=== PATIENT | female | born 1975 | race Caucasian/White ===

== ENCOUNTER 2017-09-06 10:59 | Emergency (ER) | payer BC ==
[2017-09-06 11:04] VITALS: BP 113/75
== END 2017-09-06 12:33 | disposition left against medical advice (07) ==
LOC: ED 10:59
DX: R10.9 Unspecified abdominal pain (principal); Z53.21 Procedure and treatment not carried out due to patient leaving prior to being seen by health care provider

== ENCOUNTER 2019-07-01 17:32 | Emergency (ER) | payer BC ==
[2019-07-01] MEDS ORDERED: NS 0.9% 1000 ML** 1,000 ML IV ONE (17:51)
[2019-07-01] MEDS ORDERED: Ondansetron INJ* 2 MG/ML VIAL IV ONE ×2 (17:51→18:39)
--- NOTE | 2019-07-01 17:56 | ED ---
Syncope/Near Syncope - HPI Summary HPI Summary: This patient is a 43 year old female brought in by EMS presenting to [facility] with a chief complaint of alcohol intoxication. The patient states she had too much "moonshine" at a wedding and had a near syncopal episode. EMS reported a glucose of 57 g/dl and gave her 10% dextrose [employer]. She has a Hx of bypass and anemia following the surgery. Patient without complaints at this time aside from nausea. No cardiac hx. Did not hit head. Family at bedside - History Of Current Complaint Chief Complaint: EDSubstanceAbuse Time Seen by Provider: 07/01/19 17:44 Hx Obtained From: Patient Onset/Duration: Lasting Hours Timing: Constant Context: Witnessed - Allergies/Home Medications Allergies/Adverse Reactions: Allergies Allergy/AdvReac Type Severity Reaction Status Date / Time aspirin Allergy See Comment Verified 03/07/18 11:16 hydromorphone Allergy Shortness Verified 03/07/18 11:18 of Breath latex Allergy Facial Verified 03/07/18 11:18 Redness/Flushing Latex, Natural Rubber Allergy Eyes Verified 03/07/18 11:18 Itchy/Swollen/Red/Watery morphine Allergy Shortness Verified 03/07/18 11:18 of Breath ALL TAPES Allergy MOREL, Uncoded 05/19/17 12:07 BRIGHT RED, LAST FOR DAYS SEASONAL Allergy ITCHY Uncoded 05/19/17 12:07 ENVIRONMENTAL/HAYFEVER EYES, CONGESTION Home Medications: Home Medications NK [No Home Medications Reported] 07/01/19 [History Confirmed 07/01/19] PMH/Surg Hx/FS Hx/Imm Hx Endocrine/Hematology History: Denies: Hx Diabetes Cardiovascular History: Denies: Hx Hypertension, Hx Pacemaker/ICD History: Denies: Hx Renal Disease Musculoskeletal History: Reports: Hx Arthritis - BILATERAL KNEES Sensory History: Denies: Hx Contacts or Glasses, Hx Hearing Aid Opthamlomology History: Denies: Hx Contacts or Glasses Psychiatric History: Denies: Hx Panic Disorder - Cancer History Hx Chemotherapy: No Hx Radiation Therapy: No - Surgical History Surgery Procedure, Year, and Place: tubal ligation. 2 c-sections. breast reduction. cyst to left ankle removed. GASTRIC SLEEVE - 04/2015 Hx Anesthesia Reactions: Yes - DURAMORPH - ITCHY, RED SPOTS ALL OVER Infectious Disease History: No Infectious Disease History: Denies: Traveled Outside the [place] in Last 30 Days - Family History Known Family History: Positive: Non-Contributory - Social History Alcohol Use: None Substance Use Type: Reports: None Smoking Status (MU): Never Smoked Tobacco Review of Systems Positive: Syncope Positive: Other - Alochol intoxication All Other Systems Reviewed And Are Negative: Yes Physical Exam - Summary Physical Exam Summary: Constitutional: Intoxicated. Well-developed, Well-nourished, Alert. (-) Distressed Skin: Warm, Dry HENT: Normocephalic; Atraumatic Eyes: Conjunctiva normal Neck: Musculoskeletal ROM normal neck. (-) JVD, (-) Stridor, (-) Nuchal rigidity Cardio: Rhythm regular, rate normal, Heart sounds normal; Intact distal pulses; Radial pulses are 2+ and symmetric. (-) Murmur Pulmonary/Chest wall: Effort normal. (-) Respiratory distress, (-) Wheezes, (-) Rales Abd: Soft, (-) tenderness, (-) Distension, (-) Guarding, (-) Rebound Musculoskeletal: (-) Edema Lymph: (-) Cervical adenopathy Neuro: Alert, Oriented x3 Psych: Mood and affect Normal Triage Information Reviewed: Yes Vital Signs On Initial Exam: Initial Vitals Temp Pulse Resp BP Pulse Ox 97.5 F 85 20 147/96 95 07/01/19 17:37 07/01/19 17:37 07/01/19 17:37 07/01/19 17:37 07/01/19 17:37 Vital Signs Reviewed: Yes Diagnostics - Vital Signs Vital Signs Temp Pulse Resp BP Pulse Ox 07/01/19 17:44 110 21 147/96 89 07/01/19 17:43 86 94 07/01/19 17:37 97.5 F 85 20 147/96 95 - Laboratory Result Diagrams: 07/01/19 18:11 07/01/19 18:11 Lab Statement: Any lab studies that have been ordered have been reviewed, and results considered in the medical decision making process. Re-Evaluation - Re-Evaluation First Eval Re-Evaluation Time: 19:00 Change: Unchanged Comment: Updated family on care, patient is still too intoxicated to leave. Second Eval Re-Evaluation Time: 20:10 Change: Improved - Patient ambulated, NAD. Family to take home. Given potassium Course/Dx Course Of Treatment: 43 y/o F with a history of gastric bypass and anemia presents with alcohol intoxication. Patient reportedly hypoglycemic to 57 on scene, given D10. Patient without complaints aside from being nauseous because I drank too much. - will check labs, give IVF, reassess - Diagnoses Provider Diagnoses: Alcohol intoxication Discharge - Sign-Out/Discharge Documenting (check all that apply): Patient Departure - Discharge Patient Received Moderate/Deep Sedation with Procedure: No - Discharge Plan Condition: Stable Disposition: HOME Patient Education Materials: Alcohol Intoxication (ED) Referrals: No Primary Care Phys,NOPCP [Primary Care Provider] - Additional Instructions: You were seen in the emergency department for alcohol intoxication. Please do not drink and drive - Billing Disposition and Condition Condition: STABLE Disposition: Home - Attestation Statements Document Initiated by Davidibe: Yes Documenting Scribe: Rainer Marquez Provider For Whom Davidibe is Documenting (Include Credential): Johnnie Banks MD Scribe Attestation: IRainer, scribed for Johnnie Banks MD on 07/01/19 at 2022. Scribe Documentation Reviewed: Yes Provider Attestation: The documentation as recorded by the Rainer garcia accurately reflects the service I personally performed and the decisions made by , Johnnie Banks MD Status of Scribe Document: Viewed
[2019-07-01 18:30] LABS: ABS Monocytes 0.3 10^3/ul (0-0.8); ABS Neutrophils 2.3 10^3/ul (1.5-7.7); Eosinophil % 0.5 %; Hematocrit 35 % (35-47); Hemoglobin 11.3 g/dL (12.0-16.0); Lymphocyte % 27.2 %; Mean Corpuscular HGB Conc 32 g/dL (31-36); Mean Corpuscular Hemoglobin 26 pg (27-31); Mean Corpuscular Volume 80 fL (80-97); Mean Platelet Volume 7.9 fL (7.4-10.4); Nucleated Red Blood Cells % 0.1; Platelet Count 305 10^3/uL (150-450); Red Blood Count 4.36 10^6 /uL (3.70-4.87); Red Cell Distribution Width 15 % (10-15); White Blood Count 3.7 10^3/uL (3.5-10.8)
[2019-07-01 18:46] LABS: Albumin 4.4 g/dL (3.2-5.2); Albumin/Globulin Ratio 1.6 (1-3); BUN/Creatinine Ratio 11.8 (8-20); Calcium 8.7 mg/dL (8.6-10.3); EGFR Non-African American 82.7 (>60); Globulin 2.7 g/dL (2-4); Potassium 3.2 mmol/L (3.5-5.0); Total Bilirubin 0.7 mg/dL (0.2-1.0); Total Protein 7.1 g/dL (6.4-8.9)
[2019-07-01 18:54] LABS: HCG Pregnancy 1.29 mIU/mL
[2019-07-01] MEDS ORDERED: Potassium Chlor TAB* 20 MEQ TAB.ER PO ONE (20:06)
[2019-07-01 20:21] VITALS: BP 104/60
== END 2019-07-01 20:19 | disposition home or self-care (01) ==
LOC: ED 17:32
DX: F10.929 Alcohol use, unspecified with intoxication, unspecified (principal); Z88.5 Allergy status to narcotic agent; Z88.8 Allergy status to other drugs, medicaments and biological substances; Z91.040 Latex allergy status; Z98.84 Bariatric surgery status
CPT/HCPCS: 36415; 80053; 84702; 85025; 96361; 96374; 96376; 99283; A9270-GY; J2405

== ENCOUNTER 2019-11-21 06:56 | Emergency (ER) | payer BC ==
[2019-11-21 07:32] LABS: ABS Eosinophils 0.1 10^3/ul (0-0.6); ABS Monocytes 0.5 10^3/ul (0-0.8); ABS Neutrophils 2.4 10^3/ul (1.5-7.7); Hematocrit 43 % (35-47); Hemoglobin 14.5 g/dL (12.0-16.0); Lymphocyte % 25.1 %; Mean Corpuscular HGB Conc 34 g/dL (31-36); Mean Corpuscular Hemoglobin 31 pg (27-31); Mean Corpuscular Volume 90 fL (80-97); Mean Platelet Volume 7.9 fL (7.4-10.4); Nucleated Red Blood Cells % 0.3; Platelet Count 250 10^3/uL (150-450); Red Blood Count 4.75 10^6 /uL (3.70-4.87); Red Cell Distribution Width 14 % (10-15); White Blood Count 3.9 10^3/uL (3.5-10.8)
[2019-11-21 07:42] LABS: Albumin 4.4 g/dL (3.2-5.2); Albumin/Globulin Ratio 1.6 (1-3); BUN/Creatinine Ratio 17.3 (8-20); Calcium 9.3 mg/dL (8.6-10.3); EGFR African American 101.1 (>60); EGFR Non-African American 83.6 (>60); Globulin 2.8 g/dL (2-4); Magnesium 1.9 mg/dL (1.9-2.7); Potassium 3.3 mmol/L (3.5-5.0); Total Bilirubin 0.5 mg/dL (0.2-1.0); Total Protein 7.2 g/dL (6.4-8.9)
[2019-11-21] MEDS ORDERED: Ondansetron INJ* 2 MG/ML VIAL IV ONE (07:45)
[2019-11-21] MEDS ORDERED: NS 0.9% 1000 ML** 1,000 ML IV ONE ×2 (07:51→08:37)
--- NOTE | 2019-11-21 07:52 | ED ---
GI/ HPI - HPI Summary HPI Summary: This patient is a 44 year old F presenting to [facility] with a chief complaint of N/ V/D since 3 days ago, 11/18/19, at 0200. Symptoms improving today. Pt reports bad stomach cramps, N/V/D, tactile fever, and back of legs cramping especially of left leg. Pt reports she took shower when near syncope occurred and she felt lightheaded. Patient reports hx gastric sleeve 5 yrs ago done by Dr. Mcintyre with no complications then. Pt reports she called into work yesterday and attempted to go today but felt sick. Pt reports no prior problems after her gastric sleeve. Pt denies V/D or eating today and is reporting continued nausea. - History of Current Complaint Chief Complaint: EDGeneral Time Seen by Provider: 11/21/19 07:08 Stated Complaint: WEAKNESS PER PT Hx Obtained From: Patient Hx Last Menstrual Period: ~1 week ago Onset/Duration: Started Days Ago, Still Present Timing: Constant Pain Intensity: 0 Associated Signs and Symptoms: Positive: Syncope - near-syncope, Nausea, Vomiting, Diarrhea, Fever, Other: - stomach cramp, BLE cramp Aggravating Factor(s): Nothing Alleviating Factor(s): Nothing - Allergy/Home Medications Allergies/Adverse Reactions: Allergies Allergy/AdvReac Type Severity Reaction Status Date / Time aspirin Allergy See Comment Verified 11/21/19 07:02 hydromorphone Allergy Shortness Verified 11/21/19 07:02 of Breath latex Allergy Facial Verified 11/21/19 07:02 Redness/Flushing Latex, Natural Rubber Allergy Eyes Verified 11/21/19 07:02 Itchy/Swollen/Red/Watery morphine Allergy Shortness Verified 11/21/19 07:02 of Breath ALL TAPES Allergy MOREL, Uncoded 11/21/19 07:02 BRIGHT RED, LAST FOR DAYS SEASONAL Allergy ITCHY Uncoded 11/21/19 07:02 ENVIRONMENTAL/HAYFEVER EYES, CONGESTION PMH/Surg Hx/FS Hx/Imm Hx Endocrine/Hematology History: Denies: Hx Diabetes Cardiovascular History: Denies: Hx Hypertension, Hx Pacemaker/ICD History: Denies: Hx Renal Disease Musculoskeletal History: Reports: Hx Arthritis - BILATERAL KNEES Sensory History: Denies: Hx Contacts or Glasses, Hx Hearing Aid Opthamlomology History: Denies: Hx Contacts or Glasses Psychiatric History: Denies: Hx Panic Disorder - Cancer History Hx Chemotherapy: No Hx Radiation Therapy: No - Surgical History Surgery Procedure, Year, and Place: tubal ligation. 2 c-sections. breast reduction. cyst to left ankle removed. GASTRIC SLEEVE - 04/2015 Hx Anesthesia Reactions: Yes - DURAMORPH - ITCHY, RED SPOTS ALL OVER Infectious Disease History: No Infectious Disease History: Denies: Traveled Outside the [place] in Last 30 Days - Family History Known Family History: Positive: Other - [place] - Social History Alcohol Use: None Hx Substance Use: No Substance Use Type: Reports: None Hx Tobacco Use: No Smoking Status (MU): Never Smoked Tobacco Review of Systems Positive: Fever Positive: Vomiting, Diarrhea, Nausea, Other - stomach cramps Positive: Other - BLE cramping Positive: Syncope - near syncope All Other Systems Reviewed And Are Negative: Yes Physical Exam - Summary Physical Exam Summary: Constitutional: Well-developed, Well-nourished, Alert. (-) Distressed Skin: Warm, Dry HENT: Normocephalic; Atraumatic, dry MM Eyes: Conjunctiva normal Neck: Musculoskeletal ROM normal neck. (-) JVD, (-) Stridor, (-) Nuchal rigidity Cardio: Rhythm regular, rate normal, Heart sounds normal; Intact distal pulses; Radial pulses are 2+ and symmetric. (-) Murmur Pulmonary/Chest wall: Effort normal. (-) Respiratory distress, (-) Wheezes, (-) Rales Abd: Soft, (-) tenderness, (-) Distension, (-) Guarding, (-) Rebound Musculoskeletal: (-) Edema Lymph: (-) Cervical adenopathy Neuro: Alert, Oriented x3 Psych: Mood and affect Normal Triage Information Reviewed: Yes Vital Signs On Initial Exam: Initial Vitals Temp Pulse Resp BP Pulse Ox 96.4 F 77 16 116/80 99 11/21/19 06:58 11/21/19 06:58 11/21/19 06:58 11/21/19 06:58 11/21/19 06:58 Vital Signs Reviewed: Yes Procedures - Sedation Patient Received Moderate/Deep Sedation with Procedure: No Diagnostics - Vital Signs Vital Signs Temp Pulse Resp BP Pulse Ox 11/21/19 07:29 70 97 11/21/19 06:58 96.4 F 77 16 116/80 99 - Laboratory Lab Results: Lab Results 11/21/19 11/21/19 Range/Units 07:18 07:18 WBC 3.9 (3.5-10.8) 10^3/uL RBC 4.75 (3.70-4.87) 10^6 /uL Hgb 14.5 (12.0-16.0) g/dL Hct 43 (35-47) % MCV 90 (80-97) fL MCH 31 (27-31) pg MCHC 34 (31-36) g/dL RDW 14 (10-15) % Plt Count 250 (150-450) 10^3/uL MPV 7.9 (7.4-10.4) fL Neut % (Auto) 60.5 % Lymph % (Auto) 25.1 % Barren % (Auto) 11.8 % Eos % (Auto) 2.0 % Baso % (Auto) 0.6 % Absolute Neuts (auto) 2.4 (1.5-7.7) 10^3/ul Absolute Lymphs (auto) 1.0 (1.0-4.8) 10^3/ul Absolute Monos (auto) 0.5 (0-0.8) 10^3/ul Absolute Eos (auto) 0.1 (0-0.6) 10^3/ul Absolute Basos (auto) 0.0 (0-0.2) 10^3/ul Absolute Nucleated RBC 0.0 10^3/ul Nucleated RBC % 0.3 Sodium 136 (135-145) mmol/L Potassium 3.3 L (3.5-5.0) mmol/L Chloride 102 (101-111) mmol/L Carbon Dioxide 26 (22-32) mmol/L Anion Gap 8 (2-11) mmol/L BUN 13 (6-24) mg/dL Creatinine 0.75 (0.51-0.95) mg/dL Est GFR ( Amer) 101.1 (>60) Est GFR (Non-Af Amer) 83.6 (>60) BUN/Creatinine Ratio 17.3 (8-20) Glucose 80 (70-100) mg/dL Calcium 9.3 (8.6-10.3) mg/dL Magnesium 1.9 (1.9-2.7) mg/dL Total Bilirubin 0.50 (0.2-1.0) mg/dL AST 21 (13-39) U/L ALT 17 (7-52) U/L Alkaline Phosphatase 49 (34-104) U/L Troponin I Pending Total Protein 7.2 (6.4-8.9) g/dL Albumin 4.4 (3.2-5.2) g/dL Globulin 2.8 (2-4) g/dL Albumin/Globulin Ratio 1.6 (1-3) Result Diagrams: 11/21/19 07:18 11/21/19 07:18 Lab Statement: Any lab studies that have been ordered have been reviewed, and results considered in the medical decision making process. - EKG 721 Cardiac Rate: NL - 69 BPM Summary of EKG Findings: EKG taken at 721 reveals sinus rhythm at 69 BPM with T -wave inversion in v1. When compared to 2014 no significant change. Re-Evaluation - Re-Evaluation First Eval Re-Evaluation Time: 08:36 Comment: Pt is feeling much better after IVF. GIGU Course/Dx - Course Course Of Treatment: 44 y/o F w hx gastric sleeve 5 years ago p/w nausea/ vomiting. - suspect 2/2 viral gastroenteritis. - VSS NAD, PE well appearing, abd soft. do not suspect appendicitis as patient does not have any right lower quadrant tenderness, fevers. No right upper quadrant tenderness to suggest biliary pathology, LFTs within normal limits. No urinary symptoms. Regarding fatigue/lightheadedness, Hb higher than normal suspect 2/2 hemoconcentration, EKG sinus without evidence of ischemia. Suspect secondary to dehydration. - labs notable for K 3.3, repleted. Given 2 L IVF. Feels much improved. Does not want to eat/drink here but has not vomited in >1 day. 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 0859: [place]: As long as pt feels fine she can be d/c and follow up in office as needed. Discharge ED - Sign-Out/Discharge Documenting (check all that apply): Patient Departure - discharge - Discharge Plan Condition: Stable Disposition: HOME Prescriptions: Ondansetron ODT TAB* [Zofran 4 MG Odt TAB*] 4 mg PO Q8H PRN 4 Days #12 tab.odt PRN Reason: Nausea/Vomiting Patient Education Materials: Acute Nausea and Vomiting (ED) Referrals: Mary Tello DO [Primary Care Provider] - 3 Days Additional Instructions: You were seen in the emergency department for nausea vomiting and dehydration. Your lab work showed mildly low potassium which we repleted in the ER. If any studies were not completed at the time of discharge you will be called with the relevant results. Please follow up with your primary care doctor in next 2-3 days and return to emergency department for worsening nausea, diarrhea, vomiting, abdominal pain, inability to eat or drink, or concerning symptoms. It was a pleasure taking care of you today. - Billing Disposition and Condition Condition: STABLE Disposition: Home - Attestation Statements Document Initiated by Miri: Yes Documenting Scribe: July Camejo Provider For Whom Miri is Documenting (Include Credential): Dr. Johnnie Jaramillo MD Scribe Attestation: July Soriano, scribed for Dr. Johnnie Jaramillo MD on 11/21/19 at 1005. Scribe Documentation Reviewed: Yes Provider Attestation: The documentation as recorded by the July garcia accurately reflects the service I personally performed and the decisions made by me, Dr. Johnnie Jaramillo MD Status of Scribe Document: Viewed
[2019-11-21] MEDS ORDERED: Potassium Chlor TAB* 20 MEQ TAB.ER PO ONE (08:06)
[2019-11-21 10:04] VITALS: BP 113/68
== END 2019-11-21 09:40 | disposition home or self-care (01) ==
LOC: ED 06:56
DX: R11.10 Vomiting, unspecified (principal); E86.0 Dehydration; Z98.84 Bariatric surgery status; Z98.51 Tubal ligation status; Z88.5 Allergy status to narcotic agent; Z88.8 Allergy status to other drugs, medicaments and biological substances; Z91.040 Latex allergy status
CPT/HCPCS: 36415; 80053; 83735; 84484; 85025; 93005; 96361; 96374; 99284; A9270-GY; J2405

== ENCOUNTER 2020-02-07 06:45 | Day surgery (SDC) | payer BC ==
[~2020-02-07 06:45] MED LIST: Buffered Lidocaine 1% SYRIN* 1 ML/SYRINGE INTRADERM ONE; Lactated Ringers 1000 ML Bag* 1,000 ML IV SCH
[2020-02-07] MEDS ORDERED: Buffered Lidocaine 1% SYRIN* 1 ML/SYRINGE INTRADERM ONE (06:57)
[2020-02-07] MEDS ORDERED: Propofol* 10 MG/ML 20 ML BTL ONE (08:08)
[2020-02-07] MEDS ORDERED: Lidocaine 2% PF * 5 ML VIAL ONE (08:09)
[2020-02-07] MEDS ORDERED: Midazolam* 1 MG/ML 2 ML VIAL (2 MG) ONE ×3 (08:10→09:04)
[2020-02-07] MEDS ORDERED: Ketorolac INJ* 30 MG/ML 1 ML VIAL ONE ×2 (08:14→09:36)
[2020-02-07] MEDS ORDERED: Rocuronium* 10 MG/ML VIAL ONE (08:39)
[2020-02-07] MEDS ORDERED: Succinylcholine* 20 MG/ML 10 ML VIAL ONE ×2 (08:40)
[2020-02-07] MEDS ORDERED: fentaNYL* 50 MCG/ML 2 ML VIAL (100 MCG VIAL) ONE (08:40)
[2020-02-07] MEDS ORDERED: Dexamethasone IV* 4 MG/ML 1 ML (4 MG) ONE (09:20)
[2020-02-07] MEDS ORDERED: Acetaminophen IV 1GM/100ML * 100 ML ONE (09:34)
[2020-02-07] MEDS ORDERED: DiMENhydriNATE IV* 50 MG/ML VIAL IV PUSH PRN (09:36)
[2020-02-07] MEDS ORDERED: fentaNYL* 50 MCG/ML 2 ML VIAL (100 MCG VIAL) IV PRN (09:36)
[2020-02-07] MEDS ORDERED: Naloxone* 0.4 MG/ML 1 ML VIAL IV PRN (09:36)
[2020-02-07] MEDS ORDERED: Ondansetron INJ* 2 MG/ML VIAL ONE (09:36)
[2020-02-07] MEDS ORDERED: Metoclopramide IV* 5 MG/ML 2 ML VIAL ONE (09:36)
[2020-02-07] MEDS ORDERED: Sugammadex * 200 MG/2 ML VIAL IV PUSH ONE (09:54)
[2020-02-07] MEDS ORDERED: Ketorolac TAB * 10 MG TAB PO PRN (10:21)
[2020-02-07] MEDS ORDERED: HYDROcodone/ACETAMIN 5-325 MG* 1 TAB PO PRN (10:21)
[2020-02-07 11:52] VITALS: BP 123/87
--- NOTE | 2020-02-07 23:14 | OP ---
DATE OF OPERATION: 02/07/20 - [facility] DATE OF : 73 SURGEON: Dr. Hale. ANESTHESIOLOGIST: Dr. Hines. ANESTHESIA: General endotracheal anesthesia. PRE-OP DIAGNOSES: Menorrhagia, polyp on ultrasound. POST-OP DIAGNOSES: Menorrhagia, polyp on ultrasound. OPERATIVE PROCEDURE: Dilation, hysteroscopy, MyoSure polypectomy, curettage, and NovaSure ablation. ESTIMATED BLOOD LOSS: Less than 20 cc. URINE OUTPUT: 50 cc clear urine on straight cath. NOVASURE SETTINGS: Length of cavity is 5.5, width is 4.5. The power was 136. The time was 1 minute 12 seconds. The deficit was 370 cc on the MyoSure. FINDINGS: Midline uterus, 8-week size. No adnexal masses palpated. Midline cervix. The uterus sounded to 10. The cervical length is 4.5 cm. There was fluffy endometrium on the posterior surface of the uterine wall. Both tubal ostia were visualized. There was a small polyp originating from the posterior wall. COMPLICATIONS: None. COUNTS: Sponge, lap, and needle counts were correct x2. CONDITION: The patient was brought to the recovery room awake and in stable condition. DESCRIPTION OF PROCEDURE: The patient was brought to the operating room. When general anesthesia was found to be adequate, the patient was prepped and draped in the usual sterile fashion in the dorsal lithotomy position. Time-out was performed. Urine test was confirmed to be negative. Exam under anesthesia was performed with the above findings noted. The bladder was emptied using sterile conditions with a straight catheter. The weighted speculum was placed in the vagina. The anterior lip of the cervix was grasped with a single- tooth tenaculum and the cervix was gently dilated with the graduated Hegar dilators. The cervical length was 4.5 cm. The MyoSure was introduced. There was fluffy endometrium along the posterior uterine wall with one small polyp. The polyp was removed with the MyoSure LITE. Curettage was then performed NovaSure was then performed. After the NovaSure was tested, the test was passed and then the NovaSure was enabled after it was seated. The NovaSure was removed. The hysteroscope was reintroduced. A good ablation was noted throughout and the NovaSure was removed. Single-tooth tenaculum was removed from the anterior lip of the cervix. Excellent hemostasis was noted. All instruments removed from the vagina and the patient was brought to the recovery room awake and in stable condition. [id number]/[id number] #: [id number] VIDA
== END 2020-02-07 10:50 | disposition home or self-care (01) ==
LOC: OR 06:45
PROVIDERS: ATTEND Obstetrics & Gynecology
DX: N92.1 Excessive and frequent menstruation with irregular cycle (principal); N84.0 Polyp of corpus uteri; G47.33 Obstructive sleep apnea (adult) (pediatric); G25.81 Restless legs syndrome; K21.9 Gastro-esophageal reflux disease without esophagitis; M17.0 Bilateral primary osteoarthritis of knee; Z98.84 Bariatric surgery status; D64.9 Anemia, unspecified; Z68.32 Body mass index [BMI] 32.0-32.9, adult; Z88.5 Allergy status to narcotic agent; Z91.012 Allergy to eggs; Z91.040 Latex allergy status
CPT/HCPCS: 81025; 88305; J0330; J1100; J1885; J2250; J2405; J2704; J2765; J3010